=== PATIENT | male | born 1975 | race Asian ===

== ENCOUNTER → 2017-11-22 | Outpatient (CLI) | payer OTHER ==
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
== END | disposition home or self-care (01) ==
LOC: C.RDSM 14:30
PROVIDERS: ATTEND Family Medicine
DX: M54.2 Cervicalgia (principal)